=== PATIENT | female | born 1980 | race American Indian/Alaskan Native ===

== ENCOUNTER 2016-07-08 06:51 | Observation (INO) | payer MEDICAID ==
[2016-07-08] MEDS ORDERED: NACL 0.9% 500 ML 500 ML ONE (07:04)
[2016-07-08] MEDS ORDERED: ECOTRIN PO ONE ×2 (07:04→07:06)
[2016-07-08 07:30] LABS: Hematocrit 30.2 % (30.3-42.9); Hemoglobin 9.7 gm/dl (10.1-14.3); Mean Corpuscular HGB Conc 32 % (30-34); Mean Corpuscular Hemoglobin 29 pg (28-32); Mean Corpuscular Volume 91 fl (79-97); Platelet Count 280 K/mm3 (140-440); Red Blood Count 3.31 M/mm3 (3.65-5.03); White Blood Count 7.9 K/mm3 (4.5-11.0)
[2016-07-08 07:32] LABS: Red Cell Distribution Width 24.6 % (13.2-15.2)
[2016-07-08 07:39] LABS: INR 1.1 (0.87-1.13)
[2016-07-08 07:44] LABS: Anion Gap 15 mmol/L; BUN/Creatinine Ratio 17.14; Blood Urea Nitrogen 12 mg/dL (7-17); Calcium 8.9 mg/dL (8.4-10.2); Carbon Dioxide 25 mmol/L (22-30); Chloride 102.1 mmol/L (98-107); Glucose 91 mg/dL (65-100); Potassium 3.8 mmol/L (3.6-5.0); Sodium 138 mmol/L (137-145)
[2016-07-08] MEDS ORDERED: NACL 0.9% 500 ML 500 ML IV SCH (08:00)
[2016-07-08 08:08] LABS: Acanthocytes Rare; Anisocytosis 1+; Blastocytes % (Manual) 0 %; Elliptocytes 2+; Eosinophils % (Manual) 0 % (0.0-4.3); Hypochromasia 1+; Large Platelets 1+
[2016-07-08 08:09] LABS: Diff Status Complete; Giant Platelets Rare
[2016-07-08] MEDS ORDERED: NITROGLYCERIN SYRINGE 3 ML ONE (09:20)
[2016-07-08] MEDS ORDERED: HEPARIN/NS 5000 UNIT/500ML(CATH LAB) 1,000 ML IR ONE (09:20)
[2016-07-08] MEDS ORDERED: XYLOCAINE 2% INFILTRATI ONE (09:20)
[2016-07-08] MEDS ORDERED: CALAN ONE (09:20)
[2016-07-08] MEDS ORDERED: SUBLIMAZE ONE (09:21)
[2016-07-08] MEDS ORDERED: VERSED ONE (09:21)
[2016-07-08] MEDS ORDERED: BENADRYL ONE (09:56)
[2016-07-08] MEDS: HEPARIN 10,000 UNITS/10 ML ONE ×3 (10:02→10:52)
[2016-07-08] MEDS ORDERED: AGGRASTAT DRIP (12.5 MG/250 ML) 12,500 MCG/250 ML BAG IV ONE (10:51)
[2016-07-08] MEDS ORDERED: EFFIENT PO ONE (10:51)
[2016-07-08] MEDS ORDERED: ALUM-MAG HYDROX-SIMETH 200-200-20MG/5ML ONE (10:52)
--- NOTE | 2016-07-08 11:19 | Event Note ---
Date: 07/08/16 Outpatient cardiac catheterization: Severe disease of the LAD and a large proximal diagonal branch. Successful PCI with 3.0 EULOGIO to Diag and 3.5 EULOGIO to LAD. Admit 23hrs, on Aggrastat for 18hrs. Discharge tomorrow on Effient, ASA, Losartan, Metoprolol, Imdur and Lipitor.
[2016-07-08] MEDS ORDERED: ULTRAM ONE (11:42)
[2016-07-08] MEDS ORDERED: NACL 0.9% 1000 ML 1,000 ML IV SCH (12:00)
[2016-07-08] MEDS ORDERED: AGGRASTAT DRIP (12.5 MG/250 ML) 12,500 MCG/250 ML BAG IV SCH (12:00)
--- NOTE | 2016-07-08 12:02 | Cardiac Catherization Report ---
CARDIAC CATHETERIZATION AND CORONARY ANGIOPLASTY REPORT REASON FOR PROCEDURE: The patient is a 35-year-old woman who underwent outpatient workup for chest pain, demonstrated an abnormal stress perfusion study, with reversible anterior wall ischemia. She was recommended for cardiac catheterization. PROCEDURE: The patient was prepped and draped in a sterile fashion after informed consent. The right radial cath site was prepped and draped after a negative Terence's test. The right radial artery was entered using the Seldinger technique followed by placement of a 6-Lao hydrophilic sheath. A #3.5 left Whit catheter was used for left coronary angiography. A #4 right Whit was used for right coronary angiography. CORONARY ANGIOGRAPHY: The angiograms were reviewed. The left main coronary artery was free of significant disease. The left anterior descending artery contained mild luminal irregularities in its proximal segment. After this, a large, proximal diagonal branch of the LAD was notable for a long ulcerated 95% stenosis of its proximal segment. Immediately following the diagonal branch, there was another long, 80% stenosis of the mid LAD. The circumflex artery and its obtuse marginal branches contained mild luminal irregularities. The right coronary artery was dominant and contained mild luminal irregularities. CORONARY ANGIOPLASTY: After review of the angiograms, we recommended angioplasty of the diagonal branch, and the mid LAD. We selected a 0.014 inch Cutting Machine Offbearer 50 guidewire, which was introduced into the diagonal branch. Another fuel pilot engineer guidewire was introduced down the LAD. The diagonal branch stenosis was then predilated using a 3.0 mm balloon. Following this, we deployed a 3.0 x 18 mm drug-eluting stent into the proximal diagonal branch and inflated to optimal pressures. Following deployment, there was an excellent angiographic result, 0 residual stenosis and ANGEL 3 flow down this vessel. We then turned our attention to the mid LAD. A 3.0 mm balloon was used to predilate the stenosis of the LAD, following which we deployed a 3.5 x 18 mm drug-eluting stent to the mid LAD, again with excellent angiographic result post-deployment. The procedure was well tolerated by the patient. There were no complications. The wires and the catheters were removed, sheath removed and hemostasis achieved using manual compression. The patient was returned to the post procedure unit in stable condition. CONCLUSION: 1. Multivessel coronary disease with severe stenosis of the proximal segment of the diagonal branch, and severe stenosis of the mid LAD. 2. Successful angioplasty and stenting of the LAD and diagonal branch. A 3.0 mm drug-eluting stent was deployed to the diagonal branch, and a 3.5 mm drug-eluting stent to the mid LAD. JOB# [id number] DARNELL/NTS
[2016-07-08] MEDS ORDERED: ZOFRAN IV PRN (13:00)
[2016-07-08] MEDS ORDERED: ULTRAM PO PRN (13:00)
--- NOTE | 2016-07-08 14:10 | Admit Criteria Form ---
Admission Criteria Documentation: TELEMETRY CARE Telemetry Admission Guidelines (Place 'X' for any and all applicable criteria): Admission to telemetry [A] may be indicated for ANY ONE of the following(1)(2)(3 )(4)(5): [ X]I. Cardiac disease, including ANY ONE of the following (9)(10)(11)(12)( 13): [ ]a) Postacute HI [ ]b) Low-risk patients with ST-segment elevation HI who have undergone successful percutaneous coronary intervention [ ]c) Unstable angina [ ]d) Suspected HI (until it is ruled out) [ ]e) Post cardiac surgery (first 48 to 72 hours unless complications occur) [ ]f) Acute arrhythmias (including significant tachycardia or bradycardia) [B] [ ]g) Firing of an implantable cardioverter defibrillator [C] [ ]h) Suspected pacemaker or implantable cardioverter defibrillator malfunction (10) [ ]i) New administration or adjustment of an antiarrhythmic drug [D ] [ ]j) Child admitted for acute congestive heart failure [ ]j) Long QT syndrome [ ]k) Advanced heart block (eg, second-degree Mobitz type II, third- degree heart block) [ ]l) Acute myocarditis or pericarditis [X ]m) Short-term (ambulatory or inpatient) monitoring after a cardiac procedure as indicated by ANY ONE of the following [E]: [ ]i) Electrophysiologic studies [X ]ii) Percutaneous coronary intervention with stent placement [ ]iii) Pacemaker placement with cardiac conduction defect [ ]iv) Implantable cardiac defibrillator placement [ ]II. Drug overdose or poisoning with substance that causes arrhythmias or QT prolongation (eg, phenothiazines, sympathomimetic agents, cyclic antidepressants, digitalis, antiarrhythmic drugs)(15) [ ]III. Short-term (ambulatory or inpatient) monitoring after therapeutic or diagnostic procedure requiring conscious sedation or anesthesia (eg, endoscopy, elective cardioversion) [ ]IV. Acute cerebrovascular even[F](18) [ ]V. Massive blood transfusion (eg, at least 10 units of packed red blood cells in 24 hours) [ ]. Variceal bleeding after endoscopy, sclerotherapy, or IV vasopressin [ ]VII. Uncorrected electrolyte abnormalities associated with an increased risk of dangerous arrhythmia [G]; examples include [ ]a) Hyperkalemia with attributable ECG changes [ ]b) Potassium greater than 6.5 mmol/L (mEq/L) in a patient without history of chronic renal disease [ ]c) Prolonged QT attributed to hypokalemia, hypomagnesemia, or hypocalcemia [ ]VIII.Unexplained syncope or other neurologic event suspected of being due to arrhythmia due to a finding that increases risk; examples include(19)(20)(21): [ ]a) High-risk ECG findings (eg, bifascicular block, bradycardia, abnormal QT interval, ventricular pre- excitation) [ ]b) History of previous syncope due to arrhythmia [ ]c) Abnormal ventricular function (eg, reduced ejection fraction ) [ ]d) Exertional or supine syncope [ ]e) Concerning syncope characteristics (eg, sudden loss of consciousness without prodrome) [ ]f) Family history of sudden [ ]g) Use of arrhythmogenic medication [ ]h) Suspected cardiac ischemia [ ]i) Known channelopathy (eg, long QT syndrome, Brugada syndrome, or catecholaminergic paroxysmal ventricular tachycardia) [ ]j) Known structural heart disease (eg, hypertrophic cardiomyopathy , severe valvular disease) [ ]k) Palpitations preceding syncope The original [employer] content created by [employer] has been revised. The portions of the content which have been revised are identified through the use of italic text or in bold, and [facility] has neither reviewed nor approved the modified material. All other unmodified content is copyright [employer]. Please see references footnoted in the original [employer] edition 2016 Admission Criteria Met: Yes
[2016-07-08] MEDS ORDERED: NACL 0.9% 1000 ML 1,000 ML ONE (15:37)
[2016-07-08] MEDS: IMDUR PO SCH (17:02)
[2016-07-08] MEDS: COZAAR PO SCH (17:02)
[2016-07-08] MEDS: LOPRESSOR PO SCH (21:54)
[2016-07-08] MEDS ORDERED: AMBIEN PO PRN (22:00)
[2016-07-09] MEDS: LOPRESSOR PO SCH ×2 (07:41→09:51)
[2016-07-09 07:47] LABS: Creatine Kinase MB < 1.0 ng/mL (0.0-4.0)
[2016-07-09 07:49] LABS: Anion Gap 15 mmol/L; Blood Urea Nitrogen 7 mg/dL (7-17); Calcium 8.9 mg/dL (8.4-10.2); Carbon Dioxide 25 mmol/L (22-30); Chloride 104.9 mmol/L (98-107); Creatine Kinase 48 units/L (30-135); Glucose 86 mg/dL (65-100); Potassium 4.3 mmol/L (3.6-5.0); Sodium 141 mmol/L (137-145)
[2016-07-09 07:58] LABS: Hematocrit 27.4 % (30.3-42.9); Hemoglobin 8.8 gm/dl (10.1-14.3); Mean Corpuscular HGB Conc 32 % (30-34); Mean Corpuscular Hemoglobin 30 pg (28-32); Mean Corpuscular Volume 92 fl (79-97); Platelet Count 250 K/mm3 (140-440); Red Blood Count 2.97 M/mm3 (3.65-5.03); White Blood Count 7.1 K/mm3 (4.5-11.0)
[2016-07-09 08:03] LABS: Red Cell Distribution Width 24.7 % (13.2-15.2)
--- NOTE | 2016-07-09 08:56 | XRay Report ---
PORTABLE CHEST: Post PCI An AP portable view of the chest demonstrates a normal cardiac contour considering the limits of this technique. The lungs are clear with no evidence of infiltrate, fluid or failure. IMPRESSION: Normal portable chest.
[2016-07-09] MEDS: COZAAR PO SCH (09:50)
[2016-07-09] MEDS: IMDUR PO SCH (09:50)
[2016-07-09] MEDS ORDERED: ECOTRIN PO SCH (10:00)
[2016-07-09 10:16] LABS: Blastocytes % (Manual) 0 %
[2016-07-09 10:17] LABS: Anisocytosis 2+; Diff Status Complete; Platelet Estimate Consistent w Auto
--- NOTE | 2016-07-09 10:27 | Short Stay Summary ---
Short Stay Documentation Date of service: 07/09/16 - History H&P: obtained from office - Allergies and Medications Current Medications: Allergies No Known Allergies Allergy (Unverified 07/08/16 06:51) Home Medications Medication Instructions Recorded Confirmed Last Taken Type Aspirin [Adult Low Dose Aspirin EC] 81 mg PO QDAY 07/08/16 07/08/16 07/07/16 History Ferrous Sulfate [Feosol 325 MG tab] 325 mg PO TID 07/08/16 07/08/16 07/07/16 History Levothyroxine [Synthroid] 200 mcg PO QAM 07/08/16 07/08/16 07/07/16 History Active Medications Aspirin (Ecotrin) 325 mg PO QDAY [facility] Last Admin: 07/09/16 09:50 Dose: 325 mg Atorvastatin Calcium (Lipitor) 40 mg PO QHS [facility] Last Admin: 07/08/16 21:54 Dose: 40 mg Isosorbide Mononitrate (Imdur) 30 mg PO QDAY [facility] Last Admin: 07/09/16 09:50 Dose: 30 mg Losartan Potassium (Cozaar) 25 mg PO QDAY [facility] Last Admin: 07/09/16 09:50 Dose: 25 mg Metoprolol Tartrate (Lopressor) 50 mg PO BID [facility] Last Admin: 07/09/16 09:51 Dose: Not Given Ondansetron HCl (Zofran) 4 mg IV Q8H PRN PRN Reason: N/V unrelieved by Reglan Prasugrel (Effient) 10 mg PO QDAY [facility] Tramadol HCl (Ultram) 50 mg PO Q4H PRN PRN Reason: Pain, Moderate (4-6) Last Admin: 07/08/16 11:40 Dose: 50 mg Zolpidem Tartrate (Ambien) 5 mg PO QHS PRN PRN Reason: Sleep - Physical exam HEENT: PERRLA Lungs: Clear to auscultation Heart: Regular rate, Normal S1, Normal S2 - Brief post op/procedure progress note Procedure: Outpatient cardiac catheterization: Severe disease of the LAD and a large proximal diagonal branch. Successful PCI with 3.0 EULOGIO to Diag and 3.5 EULOGIO to LAD. - Hospital course Hospital course: Stable overnight observation. - Disposition Condition at discharge: Good Disposition: DISCHARGED TO HOME OR SELFCARE Short Stay Discharge Plan Activity: advance as tolerated Diet: low fat, low cholesterol, low salt Special Instructions: smoking cessation Follow up with: DUGLAS ACEVEDO MD [Primary Care Provider] - 7 Days CHAIM MORALES MD [Staff Physician] - 7 Days Forms: [facility] PCI D/C Instructions Prescriptions: AtorvaSTATin [Lipitor] 40 mg PO QHS #30 tablet Aspirin EC [Aspirin Enteric Coated TAB] 325 mg PO QDAY #30 tablet ISOSORBIDE MONOnitrate [Imdur ER] 30 mg PO QDAY #30 tablet Losartan [Cozaar] 25 mg PO QDAY #30 tablet Metoprolol [Lopressor TAB] 50 mg PO BID #60 tablet Prasugrel [Effient] 10 mg PO QDAY #30 tablet
[2016-07-09] MEDS ORDERED: EFFIENT PO SCH (11:11)
[2016-07-09 13:57] VITALS: BP 127/88
== END 2016-07-09 14:20 | disposition home or self-care (01) ==
LOC: OPU 06:51 → UNDOADMIN 11:11 → INTOOBSV 11:11 → 4A 11:11
PROVIDERS: ADMIT Internal Medicine Cardiovascular Disease; ATTEND Internal Medicine Cardiovascular Disease
DX: I25.10 Atherosclerotic heart disease of native coronary artery without angina pectoris (principal); I47.1 Supraventricular tachycardia; R00.2 Palpitations; R94.31 Abnormal electrocardiogram [ECG] [EKG]; E03.9 Hypothyroidism, unspecified; Z98.61 Coronary angioplasty status; Z87.891 Personal history of nicotine dependence
CPT/HCPCS: 36415; 71010; 80048; 82550; 82553; 84484; 85007; 85025; 85347; 85610; 85730; 93005; 93010; 93458; A9270; C1725; C1769; C1874; C1887; C1894; C9600; C9601; G0378; J1200; J1644; J2250; J3010; J3246; J7030; J7040; 92928; 92929; Q9967